=== PATIENT | female | born 1990 | race Caucasian/White ===

== ENCOUNTER 2017-03-19 18:26 | Emergency (ER) | payer BC ==
[~2017-03-19] VITALS: Ht 167.6 cm; Wt 72.6 kg
[2017-03-19] MEDS ORDERED: Bacitracin Oint UD TOPIC ONE ×2 (18:57→19:15)
--- NOTE | 2017-03-19 19:02 | Emergency Room Report ---
History of Present Illness General Chief Complaint: Foreign Body Source: Patient Present Illness HPI 26 YO Female presents emergency department c/o : possible FB in right heel x 2 days, s/p stepping on broken glass. Pt is UTD with tetanus, denies bleeding. pain with ambulating, or palpation rates as 10/10 in severity localized. denies erythema, d/c, increased temperature to palpation, fevers, chills, n/v, rashes. Denies numbness tingling or loss of sensation or gross motor movements of the extremities, incontinence of bowel or bladder. Denies CP, Palpitations, LOC, AMS , dizziness, Changes in Vision, Sensation, paresthesias, or a sudden severe headache. Allergies: Coded Allergies: No Known Allergies (Unverified , 03/19/17) Patient History Past Medical History: see triage record Past Surgical History: none Pertinent Family History: none Last Menstrual Period: one months ago Now: No Immunizations: UTD Reviewed Nursing Documentation: PMH: Agreed, PSxH: Agreed Nursing Documentation-PMH Past Medical History: No Stated History Review of Systems All Other Systems: negative except mentioned in HPI Physical Exam Vital Signs Date Time Temp Pulse Resp B/P Pulse Ox O2 Delivery O2 Flow Rate FiO2 03/19/17 18:31 98.2 75 16 120/80 97 Room Air Sp02 EP Interpretation: reviewed, normal General Appearance: no apparent distress, alert, GCS 15, non-toxic Head: normocephalic, atraumatic Eyes: bilateral eye PERRL, bilateral eye normal inspection ENT: hearing grossly normal, normal pharynx, no angioedema, normal voice Neck: full range of motion, supple/symm/no masses Respiratory: chest non-tender, lungs clear, normal breath sounds, speaking full sentences Cardiovascular #1: regular rate, rhythm, no edema Musculoskeletal: back normal, gait/station normal, normal range of motion, non- tender Neurologic: alert, oriented x3, responsive, motor strength/tone normal, sensory intact, speech normal Psychiatric: judgement/insight normal, memory normal, mood/affect normal Skin: normal color, no rash, warm/dry, well hydrated, other - small puncture site to the plantar aspect of the right heel, no surrounding erythema, moderate ttp to light /superficial touch, no appreciable sized fb palpated. upon light stroke possible sliver palpated. Medical Decision Making PA Attestation Dr. Cooper is my supervising Physician whom patient management has been discussed with. Diagnostic Impression: Primary Impression: Foreign body in soft tissue ER Course Pt. presents emergency department c/o : possible FB in right heel x 2 days, s/ p stepping on broken glass. Ddx considered but are not limited to retained ST FB. splinter, fx, cellulitis Vital signs: are WNL, pt. is afebrile H&PE are most consistent with possible retained FB in the soft tissue of the right heel -No infection noted at this time ORDERS: -X -Ray not warranted at this time as area involved is superficial and a small area , in addition to small sliver of glass not likely radiopaque. ED INTERVENTIONS: PROCEDURE: SUPERFICIAL SOFT TISSUE SLIVER FB REMOVAL: Verbal consent from patient was obtained to remove superficial ST FB from right heel. area was cleaned and draped in a sterile fashion using swabs from I & D kit. gentle Scraping using no. 11 blade was used until sliver was removed, pt. no longer had pain upon palpation. pt. tolerated well. there were no complications. -bacitracin and sterile dressing was applied by program assistant. DISCHARGE: At this time pt. is stable for d/c to home. Will provide printed patient care instructions, and any necessary prescriptions. Care plan and follow up instructions have been discussed with the patient prior to discharge. Last Vital Signs Date Time Temp Pulse Resp B/P Pulse Ox O2 Delivery O2 Flow Rate FiO2 03/19/17 18:31 98.2 75 16 120/80 97 Room Air Disposition: HOME, SELF-CARE Condition: Stable Scripts Bacitracin/Polymyxin B Sulfate (BACITRACIN-POLYMYXIN OINTMENT) 28.35 Gm Oint...g. 1 APPLIC TP BID, #28.3 GM Prov: Jennifer Saleh 03/19/17 Patient Instructions: Sliver Removal, Care After Additional Instructions: Take medications as directed. Follow up with PCP in 3-5 days Return sooner to ED if new symptoms occur, or current symptoms become worse. - Please note that this Emergency Department Report was dictated using [employer] control supervisor technology software, occasionally this can lead to erroneous entry secondary to interpretation by the dictation equipment. Jennifer Saleh Mar 19, 2017 19:02
[2017-03-19 19:03] VITALS: BP 118/78
[2017-03-19] MEDS ORDERED: BACITRACIN-P28.35 GM TP (19:03)
[2017-03-20] MEDS ORDERED: CEPHALEXIN500 MG ORAL (15:59)
== END 2017-03-19 19:08 | disposition home or self-care (01) ==
LOC: EMR 18:50
DX: S90.851A Superficial foreign body, right foot, initial encounter (principal); W25.XXXA Contact with sharp glass, initial encounter; Y93.9 Activity, unspecified; Y99.9 Unspecified external cause status
CPT/HCPCS: 99283

== ENCOUNTER 2017-03-20 14:43 | Emergency (ER) | payer BC ==
[~2017-03-20] VITALS: Ht 167.6 cm; Wt 72.6 kg
[~2017-03-20 14:43] MED LIST: BACITRACIN-P28.35 GM TP
[2017-03-20 15:14] VITALS: BP 117/74
[2017-03-20] MEDS ORDERED: Bacitracin Oint UD TOPIC ONE (15:58)
[2017-03-20] MEDS ORDERED: CEPHALEXIN500 MG ORAL (15:59)
[2017-03-20 16:05] VITALS: BP 117/74
--- NOTE | 2017-03-20 16:40 | Emergency Room Report ---
History of Present Illness General Chief Complaint: Foreign Body Source: Patient Present Illness HPI The patient is a 26-year-old female presenting for possible foreign body of the L foot. She was seen in this emergency Department yesterday for the same complaint and a piece of glass was removed. The patient states she still feels like there is a foreign body in the heel of the foot. The patient denies any pain at rest but states pain is a 5/10 dull ache when walking. Pain does not radiate from the heel. She has been keeping the wound clean and dry and applying antibiotic ointment. She denies any numbness or tingling. She denies any other symptoms including fever, chills, nausea, vomiting, rash. Allergies: Coded Allergies: No Known Allergies (Unverified , 03/19/17) Patient History Past Medical History: see triage record Pertinent Family History: none Last Menstrual Period: 03/20/17 Now: No Reviewed Nursing Documentation: PMH: Agreed, PSxH: Agreed Nursing Documentation-PMH Past Medical History: No Stated History Review of Systems All Other Systems: negative except mentioned in HPI Physical Exam Vital Signs Date Time Temp Pulse Resp B/P Pulse Ox O2 Delivery O2 Flow Rate FiO2 03/20/17 14:50 98.2 62 16 117/74 100 Room Air Sp02 EP Interpretation: reviewed, normal General Appearance: no apparent distress, alert, GCS 15, non-toxic Head: normocephalic, atraumatic Eyes: bilateral eye PERRL, bilateral eye normal inspection ENT: hearing grossly normal, normal pharynx, no angioedema, normal voice Musculoskeletal: normal range of motion, tender - TTP over the L plantar surface heel Neurologic: alert, oriented x3, responsive, motor strength/tone normal, sensory intact, normal gait, speech normal Psychiatric: judgement/insight normal, memory normal, mood/affect normal, no suicidal/homicidal ideation Skin: no rash, warm/dry, other - L heel superficial incision through epidermis. No bleeding. No palpable foreign body. No erythema Lymphatic: no adenopathy Medical Decision Making PA Attestation Dr. Doyle is my supervising physician. Patient management was discussed with my supervising physician Diagnostic Impression: Primary Impression: Injury due to foreign body ER Course The patient is a 26-year-old female presenting for possible foreign body of the L foot. Ddx considered include but not limited to foreign body, cellulitis, laceration PE: vitals WNL. NAD L heel superficial incision through epidermis. No bleeding. No palpable foreign body. No erythema bedside ultrasound with Dr. Doyle shows possible retained FB of the L heel deep to the dermis. The pt was informed if this and that incision for FB removal will not be done in the ER due to possibility of secondary injury. The pt will be PA'ed home with prescription for keflex. ER precautions given Last Vital Signs Date Time Temp Pulse Resp B/P Pulse Ox O2 Delivery O2 Flow Rate FiO2 03/20/17 16:05 98.2 65 16 117/74 100 Room Air Status: improved Disposition: HOME, SELF-CARE Condition: Improved Scripts Cephalexin* (KEFLEX*) 500 Mg Capsule 500 MG ORAL EVERY 6 HOURS, #20 CAP Prov: DANETTE MENDOZA 03/20/17 Patient Instructions: Sliver Removal, Care After Additional Instructions: I discussed my findings with the patient. All questions and concerns have been answered. Treatment and medication compliance have been addressed. I advised the patient that they need to follow up with PMD in 3-5 days. Return to ED if symptoms worsen, new symptoms arise, or if needed for any reason. Patient verbalized understanding of discharge instructions. DANETTE MENDOZA Mar 20, 2017 16:40
== END 2017-03-20 16:08 | disposition home or self-care (01) ==
LOC: EMR 15:37
DX: S90.852A Superficial foreign body, left foot, initial encounter (principal); X58.XXXA Exposure to other specified factors, initial encounter; Y93.9 Activity, unspecified; Y99.9 Unspecified external cause status
CPT/HCPCS: 99283